=== PATIENT | male | born 1980 | race Caucasian/White ===

== ENCOUNTER → 2019-03-07 | Day surgery (SDC) | payer OTHER ==
[~2019-03-07] MED LIST: ACYC400T PO; BUPIVAC MPF-EPI 0.5%-1:200000 30 ML VIAL. ONE; CHOL10003 PO; CIPR500T94 PO; DEXAMETHASONE SOD PHOS 4 MG/ML VIAL ONE; DULO60CA6 PO; ERGO500027 PO; FAMOTIDINE 20 MG/2 ML VIAL ONE; FENO145T30 PO; GABA300C18 PO; GUAI600T47 PO; HYDR-2145 PO; HYDR-3135 PO; HYDROcodone/APAP 10/325 1 TAB TABLET PO ONE; HYDROmorphone 2 MG/ML VIAL IV PRN; IV RINGERS,LACTATED 1000ML 1,000 ML IV SCH; KETOROLAC 30 MG/ML INJ FOR OR. INJ ONE; LIDOCAINE 1% PF 2 ML VIAL. ID PRN; LIDOCAINE 2% PF 5 ML VIAL. ONE; LISI10TA2 PO; MELA3TAB2 PO; MORPHINE SULFATE 2 MG/ML VIAL. IV PRN; MULT-246 PO; OLOP2.5D EACHEYE; OMEG1CAP27 PO; ONDANSETRON PF 4 MG/2 ML VIAL. IV PRN; ONDANSETRON PF 4 MG/2 ML VIAL. ONE; PROCHLORPERAZINE 10 MG/2 ML VIAL. IV PRN; PROPOFOL 20 ML IV ONE; RANI150C PO; SEVOFLURANE 61 TO 120 MINUTES. IH ONE; SUCCINYLCHOLINE 200 MG/10 ML VIAL. ONE; ZOLP5TAB5 PO; ceFAZolin 2GM PREMIX 2 GM/50 ML BAG IV ONE; fentaNYL PF VIAL 100 MCG/2 ML VIAL IV PRN; fentaNYL PF VIAL 100 MCG/2 ML VIAL ONE
--- NOTE | 2019-03-07 08:01 | PDOC1 ---
History and Physical Date of Admission Date of Admission DATE: 03/07/19 TIME: 07:52 Identification/Chief Complaint Chief Complaint abdominal cramps, inguinal hernia Source Source: Chart review, Patient History of Present Illness History of Present Illness Toño is a 38 yo inmate with right inguinal pain and some LLQ discomfort when bending over. US of right groin showed a fat containing hernia. He is brought for repair Past Medical History Cardiovascular: HTN Pulmonary: No pertinent hx CENTRAL NERVOUS SYSTEM: Periperal neuropathy GI: Irritable bowel disease Psych: Anxiety Past Surgical History Past Surgical History: No pertinent history Family History Family History: No Significant Social History Smoke: No ALCOHOL: none Drugs: None Current Medications Current Medications Current Medications Ondansetron HCl (Zofran) 4 mg PRN Q6HRS PRN IV NAUSEA/VOMITING; Start 03/07/19 at 07:00; Stop 03/08/19 at 06:59 Fentanyl Citrate (Fentanyl 2ml Vial) 25 mcg PRN Q5MIN PRN IV MILD PAIN 1-3; Start 03/07/19 at 07:00; Stop 03/08/19 at 06:59 Fentanyl Citrate (Fentanyl 2ml Vial) 50 mcg PRN Q5MIN PRN IV MODERATE TO SEVERE PAIN; Start 03/07/19 at 07:00; Stop 03/08/19 at 06:59 Morphine Sulfate (Morphine Sulfate) 1 mg PRN Q10MIN PRN IV SEVERE PAIN 7-10; Start 03/07/19 at 07:00; Stop 03/08/19 at 06:59 Ringer's Solution 1,000 ml @ 30 mls/hr Q24H IV Last administered on 03/07/19at 06:58; Start 03/07/19 at 07:00; Stop 03/07/19 at 18:59 Lidocaine HCl (Xylocaine-Mpf 1% 2ml Vial) 2 ml PRN 1X PRN ID PRIOR TO IV START; Start 03/07/19 at 07:00; Stop 03/08/19 at 06:59 Hydromorphone HCl (Dilaudid) 0.5 mg PRN Q10MIN PRN IV SEV PAIN, Second choice; Start 03/07/19 at 07:00; Stop 03/08/19 at 06:59 Prochlorperazine Edisylate (Compazine) 5 mg PACU PRN PRN IV NAUSEA, MRX1; Start 03/07/19 at 07:00; Stop 03/08/19 at 06:59 Cefazolin Sodium/ Dextrose 50 ml @ 100 mls/hr PREOP PRN PRN IV PREOP; Start 03/07/19 at 06:30; Stop 03/08/19 at 06:29 Bupivacaine HCl/ Epinephrine Bitart (Sensorcain-Mpf Epi 0.5%-[id number]) 30 ml STK-MED ONCE .ROUTE ; Start 03/07/19 at 06:00; Stop 03/07/19 at 07:00; Status DC Succinylcholine Chloride (Anectine) 200 mg STK-MED ONCE .ROUTE ; Start 03/07/19 at 07:38; Stop 03/07/19 at 07:39; Status DC Fentanyl Citrate (Fentanyl 2ml Vial) 100 mcg STK-MED ONCE .ROUTE ; Start 03/07/19 at 07:39; Stop 03/07/19 at 07:40; Status DC Propofol 20 ml @ As Directed STK-MED ONCE IV ; Start 03/07/19 at 07:39; Stop 03/07/19 at 07:40; Status DC Propofol 20 ml @ As Directed STK-MED ONCE IV ; Start 03/07/19 at 07:39; Stop 03/07/19 at 07:40; Status DC Lidocaine HCl (Lidocaine Pf 2% Vial) 5 ml STK-MED ONCE .ROUTE ; Start 03/07/19 at 07:39; Stop 03/07/19 at 07:40; Status DC Dexamethasone Sodium Phosphate (Decadron) 4 mg STK-MED ONCE .ROUTE ; Start 03/07/19 at 07:39; Stop 03/07/19 at 07:40; Status DC Dexamethasone Sodium Phosphate (Decadron) 4 mg STK-MED ONCE .ROUTE ; Start 03/07/19 at 07:40; Stop 03/07/19 at 07:41; Status DC Famotidine (Pepcid Vial) 20 mg STK-MED ONCE .ROUTE ; Start 03/07/19 at 07:40; Stop 03/07/19 at 07:41; Status DC Ondansetron HCl (Zofran) 4 mg STK-MED ONCE .ROUTE ; Start 03/07/19 at 07:40; Stop 03/07/19 at 07:41; Status DC Ketorolac Tromethamine (Toradol For Or Only) 30 mg STK-MED ONCE INJ ; Start 03/07/19 at 07:40; Stop 03/07/19 at 07:41; Status DC Active Scripts Active Reported Pataday (Olopatadine Hcl) 2.5 Ml Drops 1 Drop EACHEYE PRN BID PRN Vitamin D3 (Cholecalciferol (Vitamin D3)) 1,000 Unit Tablet 1 Tab PO DAILY Multi-Vitamin Daily (Multivitamin) 1 Each Tablet 1 Each PO DAILY Fish Oil 1,000 Mg Softgel ([place]-3 Fatty Acids/Fish Oil) 1 Each Capsule 1 Each PO DAILY Ranitidine Hcl 150 Mg Capsule 1 Cap PO BID Fenofibrate (Fenofibrate Nanocrystallized) 145 Mg Tablet 1 Tab PO DAILY Gabapentin (Gabapentin) 300 Mg Capsule 1,200 Mg PO PRN TID PRN Hydrochlorothiazide Tablet (Hydrochlorothiazide) 25 Mg Tablet 25 Mg PO DAILY Lisinopril 10 Mg Tablet 1 Tab PO DAILY Acyclovir 400 Mg Tablet 1 Tab PO BID Melatonin 3 Mg Tablet 2 Tab PO QHS Cymbalta (Duloxetine Hcl) 60 Mg Capsule.dr 1 Cap PO DAILY Zolpidem Tartrate 5 Mg Tablet 5 Mg PO PRN QHS PRN Allergies Allergies: Coded Allergies: No Known Drug Allergies (Unverified , 03/07/19) ROS Review of System negative with the exception of present complaints Physical Exam General: Alert, Oriented X3 HEENT: Atraumatic Lungs: Normal air movement Heart: RRR Abdomen: Soft Male Genitals Exam: other (subtle fullness right groin with Valsalva) Vitals Vitals Vital Signs Date Time Temp Pulse Resp B/P (MAP) Pulse Ox O2 Delivery O2 Flow Rate FiO2 03/07/19 06:56 97.6 77 18 130/72 98 Room Air 97.6 Images Images soft tissue US reviewed VTE Prophylaxis Ordered VTE Prophylaxis Devices: Yes VTE Pharmacological Prophylaxi: No Assessment/Plan Assessment/Plan right inguinal hernia Mr Esquivel expressed concern that his left groin was not scanned when the examined the right side. Repeat exam of the left groin this AM did not suggest a hernia. We discussed options of postponing repair of the right side until the left side can be evaluated with US vs proceeding with right sided repair and follow up. He prefers the latter. JOSE ALBERTO HINOJOSA MD Mar 07, 2019 08:01
--- NOTE | 2019-03-07 09:10 | DISCH ---
DISCHARGE INSTRUCTIONS Condition on Discharge Condition on Discharge: Stable Activity After Discharge Activity Instructions for Disc: Activity as tolerated, Avoid exertion Lifting Instructions after Dis: No heavy lifting Diet after Discharge Diet after Discharge: Regular Wound Incision Care Wound/Incision Care: Ice to area for comfort Other wound/incision instructi: december showthursday Follow-Up Follow up with: Ryne two weeks JOSE ALBERTO HINOJOSA MD Mar 07, 2019 09:10
--- NOTE | 2019-03-07 09:14 | PDOC ---
BRIEF OPERATIVE NOTE Date: Mar 07, 2019 Pre-Op Diagnosis right inguinal hernia Post-Op Diagnosis same Procedure Performed repair with mesh Surgeon Ryne Boat Canvas Maker Installer Jeana ALEJANDAR Anesthesia Type: General (LMA) Blood Loss 5cc IV Fluid 700cc Specimens Obtained none Findings indirect hernia, lax floor Complications none Operative Note Wk # [id number] JOSE ALBERTO HINOJOSA MD Mar 07, 2019 09:14
[2019-03-07 09:20] VITALS: BP 140/56
--- NOTE | 2019-03-07 10:26 | OP ---
DATE OF SURGERY: 03/07/2019 PREOPERATIVE DIAGNOSIS: Right inguinal hernia. POSTOPERATIVE DIAGNOSIS: Right inguinal hernia, indirect with a lax inguinal floor. PROCEDURE: Repair with mesh. SURGEON: Aydin Hinojosa MD MEDICAL LOGISTICS SPECIALIST: JUSTYN Fitch ANESTHESIA: General LMA. BLOOD LOSS: 5 mL. INTRAVENOUS: 700 mL. INDICATIONS: The patient is a 38-year-old male with right inguinal fullness and ultrasound suggesting hernia, brought for repair. OPERATIVE FINDINGS: A small indirect hernia was fat containing, there was some laxity of the inguinal floor. OPERATIVE REPORT: The patient brought to the operating suite, given a general LMA and the right groin prepped and draped in usual sterile fashion. A 0.5% Marcaine infiltrated along the incision line. Incision made, dissection carried down to the external oblique fascia. Bleeders were cauterized or tied as identified. The fascia was opened in the direction of its fibers and the cord was stripped off the pubis. Norris drain placed around it and dissection carried back to the internal ring where an indirect hernia was identified, skeletonized, and reduced. This was held in reduction with a small plug Phasix mesh, tacked with 2-0 PDS, taking care to avoid injury to adjacent vessels. A keyhole patch was fashioned and placed over the floor of the canal after imbricating it with 0 Vicryl suture. When hemostasis was present, the cord returned to this normal anatomical position. External oblique fascia closed over a running fashion with 3-0 Vicryl. Subcutaneous approximated with 3-0 Vicryl, skin closed with subcuticular 4-0 Monocryl. Steri-Strips and sterile dressing applied. The patient was awakened from his anesthetic and taken to the recovery room in satisfactory condition. AYDIN HINOJOSA MD DR: MIAN/rohan JOB#: [id number] / [id number]
== END ==
LOC: SURG 05:35
PROVIDERS: ATTEND Surgery
DX: K40.90 Unilateral inguinal hernia, without obstruction or gangrene, not specified as recurrent (principal); I10 Essential (primary) hypertension; F41.9 Anxiety disorder, unspecified; G62.9 Polyneuropathy, unspecified
CPT/HCPCS: 49505; C1781; J1100; J1885; J2001; J2405; J2704; J3490; A7015; J0330; J0696; J3010